=== PATIENT | female | born 1930 | race Caucasian/White ===

== ENCOUNTER 2017-11-20 12:26 | Inpatient (IN) | payer MEDICARE, OTHER ==
[~2017-11-20] VITALS: Ht 157.5 cm; Wt 54.9 kg
[~2017-11-20 12:26] MED LIST: ACTIFED; APRODINE; ASPI81CH PO; ASPI81EC PO; AZIT500 PO; BISA10S PR; BISA5EC PO; BUTASPCAF PO; CALCAVITD PO; CALCNI; CEPH500 PO; DOCU100 PO; Durezol5 ML; ESOMEPRAZOLE MA40 MG PO; HYDACE5325 PO; HYDR.5TC TOP; KETO.5OPSO; LANS30EC PO; LAVAP17G PO; LIDO2TG30 TOP; LIDO5TP TOP; MELO7.5 PO; MULVITMIND PO; NEOPOLDEXO RIGHTEYE; NUTRISOURCE FIBE4 GM PO; RANI150 PO; TOBR.3OPSO; TOLT4 PO; Zofran4 MG PO
[2017-11-20 13:32] LABS: BASOPHILS ABSOLUTE AUTO 0.04 K/mm3 (0.00-0.23); BASOPHILS PERCENT AUTO 1 % (0-2); EOSINOPHILS ABSOLUTE AUTO 0.09 K/mm3 (0.00-0.68); EOSINOPHILS PERCENT AUTO 2 % (0-6); Hematocrit 42.7 % (33.0-51.0); Hemoglobin 13.9 g/dL (11.5-16.0); IMMATURE GRAN ABSOLUTE AUTO 0.02 K/mm3 (0.00-0.10); IMMATURE GRAN PERCENT AUTO 0 % (0-1); LYMPHOCYTES ABSOLUTE AUTO 1.59 K/mm3 (0.84-5.20); LYMPHOCYTES PERCENT AUTO 27 % (21-46); MONOCYTES ABSOLUTE AUTO 0.42 K/mm3 (0.16-1.47); MONOCYTES PERCENT AUTO 7 % (4-13); Mean Corpuscular HGB 30.3 pg (26.0-34.0); Mean Corpuscular HGB Conc 32.6 g/dL (31.5-36.5); Mean Corpuscular Volume 93 fL (80-100); Mean Platelet Volume 9.7 fL (9.1-12.4); NEUTROPHILS ABSOLUTE AUTO 3.73 K/mm3 (1.96-9.15); NEUTROPHILS PERCENT AUTO 63 % (41-73); Platelet Count 205 K/mm3 (150-400); RDW Coefficient Variation 13.6 % (11.7-14.2); RDW Standard Deviation 46.9 fL (35.1-46.3); Red Blood Cell Count 4.59 M/mm3 (3.80-5.20); White Blood Cell Count 5.89 K/mm3 (4.00-11.30)
[2017-11-20 13:54] LABS: Alanine Aminotransfer (ALT/SGP 18 U/L (12-78); Albumin, Blood 3.4 g/dL (3.4-5.0); Albumin/Globulin Ratio 0.8 (0.8-1.8); Alk Phos 75 U/L (50-136); Anion Gap 6 mmol/L (6-16); Aspartate Aminotrans (AST/SGOT 18 U/L (12-37); Bilirubin, Total 1.1 mg/dL (0.1-1.0); Blood Urea Nitrogen 16 mg/dL (8-24); Bun/Creatinine Ratio 20.3 (12.0-20.0); CO2, Blood 27 mmol/L (21-32); Calcium, Blood 9.7 mg/dL (8.5-10.1); Chloride, Blood 110 mmol/L (98-108); Creatinine, Blood 0.79 mg/dL (0.40-1.00); Globulin, Blood 4.2 g/dL (2.2-4.0); Glomerular Filtration Rate >60 (60-); Glucose, Blood 106 mg/dL (70-99); Potassium, Blood 4.2 mmol/L (3.5-5.5); Sodium, Blood 143 mmol/L (136-145); Total Protein, Blood 7.6 g/dL (6.4-8.2)
[2017-11-20 23:25] LABS: Source, Urine Clean Catch
[2017-11-20 23:31] LABS: Bilirubin, Urine Neg (Neg); Blood, Urine Neg (Neg); Glucose Qualitative, Urine Neg (Neg); Ketones, Urine Neg (Neg); Leukocyte Esterase, Urine 2+ (Neg); Nitrite, Urine Pos (Neg); Protein, Urine Neg (Neg); Specific Gravity, Urine 1.015 (1.003-1.022); Urobilinogen, Urine NORM (Normal)
[2017-11-20 23:38] LABS: Appearance, Urine Hazy (Clear); Color, Urine Yellow (P-Yellow)
[2017-11-20 23:39] LABS: Bacteria Few /hpf; Red Blood Cells, Urine Not Seen /hpf (0-2); Squamous Epithelial Cells Few /hpf (Few); White Blood Cells, Urine 50-100 /hpf (0-5)
[2017-11-21 05:13] LABS: BASOPHILS ABSOLUTE AUTO 0.03 K/mm3 (0.00-0.23); BASOPHILS PERCENT AUTO 1 % (0-2); EOSINOPHILS ABSOLUTE AUTO 0.14 K/mm3 (0.00-0.68); EOSINOPHILS PERCENT AUTO 3 % (0-6); Hematocrit 35.2 % (33.0-51.0); Hemoglobin 11.5 g/dL (11.5-16.0); IMMATURE GRAN PERCENT AUTO 0 % (0-1); LYMPHOCYTES ABSOLUTE AUTO 1.37 K/mm3 (0.84-5.20); LYMPHOCYTES PERCENT AUTO 30 % (21-46); MONOCYTES PERCENT AUTO 11 % (4-13); Mean Corpuscular HGB 30.3 pg (26.0-34.0); Mean Corpuscular HGB Conc 32.7 g/dL (31.5-36.5); Mean Corpuscular Volume 93 fL (80-100); Mean Platelet Volume 9.5 fL (9.1-12.4); NEUTROPHILS ABSOLUTE AUTO 2.49 K/mm3 (1.96-9.15); NEUTROPHILS PERCENT AUTO 55 % (41-73); Platelet Count 169 K/mm3 (150-400); RDW Coefficient Variation 13.6 % (11.7-14.2); RDW Standard Deviation 46.2 fL (35.1-46.3); Red Blood Cell Count 3.79 M/mm3 (3.80-5.20); White Blood Cell Count 4.53 K/mm3 (4.00-11.30)
[2017-11-22] MEDS ORDERED: DOCU100 PO ×2 (10:59→11:00)
[2017-11-22] MEDS ORDERED: Tylenol325 MG PO (10:59)
[2017-11-22] MEDS ORDERED: Miralax17 GM PO (11:01)
[2017-11-22] MEDS ORDERED: SENN187 PO (11:01)
[2017-11-22] MEDS ORDERED: LEVFLO500 PO (11:02)
[2017-11-22] MEDS ORDERED: METR500 PO (11:02)
== END 2017-11-22 13:48 | disposition home or self-care (01) | DRG 389 ==
LOC: ER 12:26 → MEDS 17:03 → ENPENDDIS 11-22 10:00 → MEDS 11-22 13:48
PROVIDERS: Emergency Medicine; Internal Medicine
DX: K56.41 Fecal impaction (principal); N39.0 Urinary tract infection, site not specified; K52.89 Other specified noninfective gastroenteritis and colitis; K21.9 Gastro-esophageal reflux disease without esophagitis
CPT/HCPCS: 36415; 74176; 80053; 81001; 83690; 85025; 87086; 93005; 93010; 96361; 96374; 96375; 99285; J0696; J0744; J1644; J2405; J2550; J7030